=== PATIENT | female | born 1975 | race Two or more races ===

== ENCOUNTER 2024-07-31 09:00 | Outpatient (RCR) | payer MEDICAID, SELFPAY ==
--- NOTE | 2024-07-22 09:10 | PT.OIERPT ---
PT OP Initial Eval Patient Information Outpatient Physical Therapy Treatment Date: 07/22/24 Visit Reasons: lumbar spine Medical Diagnosis: M41.86 Treatment Dx #1: LBP Start of Care: 07/22/24 Date of Onset: 1 yr ago Smoking Status Smoking Status: Never smoker Initial Assessment Subjective: Pt is 49 yr old kinyarwanda speaking female with ground level fall at home last year with LBP. Pt reports increased LBP with prolonged walking, sitting and bending. She feels limited with HH chores and she takes rest breaks. Pt denies pain radiation into the LE's. PMH: hypothyroidism Imaging: with provider Pt goal: to get rid of the LBP Objective: ?Trunk ArOM: ? B SB 50% of normal ? Extension: 30% with pain around L4-5, L5-S1 ? Flexion: to toes with LBP ? B rotation: 60% ? TTP: moderate paraspinals L5-S1 ? Neuro: B SLR: negative Assessment: ? Pt presents with trunk flexion sensitivity and overlying myofascial pain ? and TTP around L5-S1 consistent with lower lumbar disc bulge(s) and facet pain. Pt requires skilled therapy in order to decrease ? pain and improve sitting/standing tolerance and has fair rehab potential. Eval ?followed by HEP printout. Short Term and Retirement Goals 1. Ind with HEP ? 2. Improved sitting/standing tolerance to 30 minutes with <=4/10 LBP ? 3. Decreased lower paraspinal TTP from mod to min 4. Improved HH chore tolerance to at least 30 minutes with <=3/10 LBP and no ?increase in LE ssx ? Treatment Plan 1. Manual therapy ? 2. Therex ? 3. Modalities as indicated, moist heat, ice, estim, mechanical traction Frequency and Duration: 2x a week for 6 Rx sessions plus the evaluation Certification Dates: 07/22/24 to 10/20/24 Procedure Charges OP PT Eval Mod Complex 30 minutes: Yes
--- NOTE | 2024-07-31 11:45 | PT.ODAYNRPT ---
PT Outpatient Daily Note OP Daily Note Outpatient Physical Therapy Treatment Date: 07/31/24 Visit Reasons: lumbar spine Subjective: Same as time of evaluation Objective: See F/S for therex Assessment: Good demo of prone extension with low tissue irritability of LB Plan: Continue per POC Length of Time (minutes) of Treatment: 30 Minutes Procedure Charges Therapeutic Exercise 30 minutes: Yes
== END 2024-08-13 23:59 | disposition home or self-care (01) ==
LOC: CPTX 09:00
PROVIDERS: PCP Physician Assistant; Referring Provider Physician Assistant; Visit Provider Physician Assistant
DX: M54.50 Low back pain, unspecified (principal); M41.86 Other forms of scoliosis, lumbar region
CPT/HCPCS: 97110; 97162

== ENCOUNTER 2024-09-10 09:30 | Outpatient (RCR) | payer MEDICAID, SELFPAY ==
--- NOTE | 2024-09-02 13:49 | PT.ODAYNRPT ---
PT Outpatient Daily Note OP Daily Note Outpatient Physical Therapy Treatment Date: 09/02/24 Visit Reasons: Lumbar spine Subjective: Continued LBP Objective: See F/S for therex Assessment: Good demo of prone extension with low/moderate tissue irritability of LB Plan: Continue per POC Length of Time (minutes) of Treatment: 30 Minutes Procedure Charges Therapeutic Exercise 30 minutes: Yes
--- NOTE | 2024-09-10 10:07 | PT.ODAYNRPT ---
PT Outpatient Daily Note OP Daily Note Outpatient Physical Therapy Treatment Date: 09/10/24 Visit Reasons: Lumbar spine Subjective: Pt reports low back has been more sore lately but has been performing her HEP. Objective: Please see flow sheet for ther ex list. Assessment: Pt c/o LBP soreness post repeated lumbar extension exercise. Plan: Continue with POC. Length of Time (minutes) of Treatment: 30 Minutes Procedure Charges Therapeutic Exercise 30 minutes: Yes
== END 2024-09-13 23:59 | disposition home or self-care (01) ==
LOC: CPTX 09:30
PROVIDERS: PCP Physician Assistant; Referring Provider Physician Assistant; Visit Provider Physician Assistant
DX: M54.50 Low back pain, unspecified (principal); M41.86 Other forms of scoliosis, lumbar region
CPT/HCPCS: 97110

== ENCOUNTER 2024-09-19 06:01 | Emergency (ER) | payer MEDICAID, SELFPAY ==
[2024-09-19] VITALS (23 sets, daily range): BP systolic 132–173; BP diastolic 79–114; PULSE 75–103; RESP 17–19; TEMP 36.6–37.9; O2SAT 91–98; BMI 50.5
--- NOTE | 2024-09-19 07:02 | XR_ITS ---
Examination: PA lateral chest 2 views TECHNIQUE: Upright PA lateral chest 2 views INDICATION: Chest pain beginning 10 days ago. FINDINGS: No significant cardiac enlargement No pneumonia or pulmonary edema Intact osseous structures IMPRESSION: No active disease
--- NOTE | 2024-09-19 07:02 | EKG_ITS ---
[facility] Test Date: 2024-09-19 Pat Name: RACHEAL SHANNONDepartment: Room: - Gender: Female Lead Android Developer: : 1975 Requested By: Kyle Aden Order Number: [id number] Reading MD: Kyle Aden Measurements Intervals [place] Rate: 97 P: 51 OR: 177 QRS: 58 QRSD: 85 T: 12 QT: 318 QTc: 405 Interpretive Statements SINUS RHYTHM POSSIBLE LEFT ATRIAL ENLARGEMENT [-0.1mV P-WAVE IN V1/V2] POSSIBLE ANTERIOR MYOCARDIAL INFARCTION , PROBABLY OLD [30 ms Q WAVE IN V3/V4, OR R < 0.2 mV IN V4] Compared to ECG 01/10/2018 11:37:51 Myocardial infarct finding now present Sinus bradycardia no longer present /store/S0/[id number]/ecg/[id number].pdf
--- NOTE | 2024-09-19 07:02 | XR_ITS ---
Examination: Lumbar spine 3 views Technique one AP lateral coned lateral lower lumbar spine 3 views Date and time: September 19, 2024 0719 hours INDICATIONS: Patient fell 10 days ago with injury to lower back, lower back pain. FINDINGS: Prominent osteopenia Lumbar dextroscoliosis 19 degrees Depression of the superior endplate L2 and reduction in height L1 which appear old but clinical correlation advised Advanced degenerative disc disease at the lower 2 lumbar levels IMPRESSION: Consider CT scan lumbar spine without contrast follow-up to exclude acute fractures L1-L2 vertebral bodies
--- NOTE | 2024-09-19 07:03 | PD.EDRME ---
Rapid Medical Screening Exam RME Arrival date/time: 09/19/24 06:01 49-year-old female with a history of hyperlipidemia presents to the emergency room with a chief complaint of bilateral lower extremity swelling, facial swelling, unable to fully empty her bladder, and lumbar back pain x 1 week I have greeted and performed a focused initial assessment of this patient. A comprehensive ED assessment and evaluation of the patient, analysis of all test results, and completion of the medical decision making process will be conducted by additional ED providers. Chief Complaint: Back Pain/Injury Vital signs: Vital Signs Temperature 99.1 F 09/19/24 06:50 Pulse Rate 103 H 09/19/24 06:50 Respiratory Rate 17 09/19/24 06:50 Blood Pressure 173/114 H 09/19/24 06:50 Pulse Oximetry (%) 98 09/19/24 06:50 Oxygen Delivery Method Room Air 09/19/24 06:50 Vital signs reviewed by provider: Yes
[2024-09-19 07:51] LABS: Basophils # (Auto) 0.1 Thou/mm3 (0.0-0.2); Basophils % (Auto) 1 % (0-2.5); Eosinophils # (Auto) 0.1 Thou/mm3 (0.0-0.5); Eosinophils % (Auto) 1 % (0-10); Hematocrit 40.6 % (36.0-46.0); Hemoglobin 13.9 g/dL (12.0-16.0); Immature Granulocytes % (Auto) 4 % (0-0); Immature Granulocytes Auto 0.43 Thou/mm3 (0.00-0.00); Lymphocytes # (Auto) 2.7 Thou/mm3 (1.0-4.8); Lymphocytes % (Auto) 22 % (10-50); Mean Corpuscular HGB Conc 34.2 g/dl (31.0-37.0); Mean Corpuscular Hemoglobin 28.4 pg (25.0-35.0); Mean Corpuscular Volume 83 fL (80-100); Monocytes % (Auto) 8 % (0-12); Neutrophils # (Auto) 7.9 Thou/mm3 (1.8-7.7); Neutrophils % (Auto) 65 % (37-80); Nucleated Red Blood Cell % 0 /100 WBC (0); Platelet Count 200 Thou/mm3 (140-440); RDW Standard Deviation 46.1 fL (36.4-46.3); Red Blood Count 4.89 Miln/mm3 (4.00-5.20); White Blood Count 12.1 Thou/mm3 (3.6-11.0)
[2024-09-19 08:07] LABS: B-Type Natriuretic Peptide < 20 pg/mL (0-100)
[2024-09-19 08:09] LABS: Alanine Aminotransferase 85 U/L (10-49); Albumin, Serum 4.2 gm/dL (3.5-5.0); Albumin/Globulin Ratio 1.8 (1.2-2.2); Alkaline Phosphatase 117 U/L (46-116); Anion Gap 10 (7-16); Aspartate Amino Transferase 32 U/L (0-34); BUN/Creatinine Ratio 25 Ratio (12-20); Bilirubin,Total 0.9 mg/dL (0.3-1.2); Blood Urea Nitrogen 15 mg/dL (9-23); Calcium 9.4 mg/dL (8.3-10.6); Calcium (Corrected) 9.4 mg/dL (8.5-10.1); Carbon Dioxide 28.7 mMol/L (20.0-31.0); Chloride 101 mMol/L (98-107); Creatinine (Component) 0.6 mg/dL (0.6-1.3); Estimated Creatinine Clearance 104.7 mL/min (>60); Globulin 2.3 gm/dL (2.3-3.5); Glucose 97 mg/dL (74-106); Osmolality,Calculated 280 (275-295); Potassium 3.6 mMol/L (3.4-5.1); Sodium 140 mMol/L (136-145); Total Protein 6.5 gm/dL (5.7-8.2); Troponin I < 0.020 ng/mL (0.0-0.045); eGFR > 60 See Note
[2024-09-19 08:21] LABS: Collection Type, Urine Clean Catch
[2024-09-19 08:33] LABS: Bacteria,Urine Rare; Bilirubin,Urine Negative (Negative); Blood,Urine Trace (Negative); Clarity,Urine Clear (Clear/Hazy); Color,Urine Lt-Yellow (Lt Yel-Yel); Glucose, Urine Negative (Negative); Ketones,Urine Negative (Negative); Leukocyte Esterase,Urine Negative (Negative); Nitrite,Urine Negative (Negative); Protein,Urine Negative (Neg - Trace); RBC,Urine 1 /hpf (0-3); Specific Gravity,Urine 1.012 (1.001-1.035); Squamous Epithelial Cell,Urine < 1 /hpf (0-5); Urobilinogen,Urine Negative mg/dL (0.0-1.0); WBC,Urine 1 /hpf (0-5)
[2024-09-19] MEDS: ACETAMINOPHEN 325 MG TABLET 650 MG PO (09:15)
--- NOTE | 2024-09-19 13:07 | PD.EDADULT ---
ED General RME/HPI General Chief complaint: Back Pain/Injury Stated complaint: R LOWER BACK PAIN Arrival date/time: 09/19/24 06:01 RME / HPI RME / HPI narrative: 09/19/24 06:01 49-year-old female with a history of hyperlipidemia presents to the emergency room with a chief complaint of bilateral lower extremity swelling, facial swelling, unable to fully empty her bladder, and lumbar back pain x 1 week I have greeted and performed a focused initial assessment of this patient. A comprehensive ED assessment and evaluation of the patient, analysis of all test results, and completion of the medical decision making process will be conducted by additional ED providers. DR. WATKINS MAIN ED EVALUATION: Related Data Previous Rx's ?Medication ?Instructions ?Recorded ibuprofen 600 mg tablet 600 mg PO Q6HR PRN PAIN #20 tabs 05/07/14 Allergies Allergy/AdvReac Type Severity Reaction Status Date / Time No Known Allergies Allergy Unknown Uncoded 09/19/24 06:15 Course Orders Category Date Time Status EKG (ED ONLY) *Do not use* NOW Care 09/19/24 07:02 Completed EKG (ED Only) Stat Exams 09/19/24 07:02 Draft XR chest 2V Stat Exams 09/19/24 07:02 Completed XR lumbar spine 2-3V Stat Exams 09/19/24 07:02 Completed B-Type Natriuretic Peptide Stat Lab 09/19/24 07:37 Completed CBC Stat Lab 09/19/24 07:37 Completed Comprehensive Metabolic Panel Stat Lab 09/19/24 07:37 Completed Magnesium Stat Lab 09/19/24 07:37 Completed Troponin I Stat Lab 09/19/24 07:37 Completed Urinalysis Stat Lab 09/19/24 08:14 Completed Acetaminophen Tab [Tylenol Tab] Med 09/19/24 09:05 Discontinued 650 mg PO X1 ONE Vital Signs Vital signs: Vital Signs Temperature 99.1 F 09/19/24 06:50 Pulse Rate 103 H 09/19/24 06:50 Respiratory Rate 17 09/19/24 06:50 Blood Pressure 173/114 H 09/19/24 06:50 Pulse Oximetry (%) 98 09/19/24 06:50 Oxygen Delivery Method Room Air 09/19/24 06:50 Discharge Plan Prescriptions/Referrals Prescriptions/Med Rec: No Action ibuprofen 600 MG tablet 600 mg PO Q6HR PRN (Reason: PAIN) Qty: 20 0RF Referrals: Lolita Kelly PA-C [Primary Care Provider] - In 1 week Patient/Caregiver Discharge Instructions Print Language: Albanian MDM Medication Administration(s) Medication Administration History Discontinued Medications Acetaminophen (Acetaminophen 325 Mg Tablet) 650 mg PO X1 ONE Stop: 09/19/24 09:06 Last Admin: 09/19/24 09:15 Dose: 650 mg Documented By: GABRIELA
--- NOTE | 2024-09-19 13:43 | XR_ITS ---
Examination: CT lumbar spine, without contrast. 2-D sagittal reconstructions. 2-D coronal reconstructions. 3-D reconstructions. Date and time of exam:September 19, 2024 1547 hours INDICATIONS: Patient fell 10 days ago with injury to lower back, lower back pain CTDI: vol (mGy):30.5 DLP: (mGycm):863 Technique: Multiple 1.25 mm axial sections of the lumbar spine without intravenous contrast have been obtained. 2-D sagittal and coronal reconstructions have been obtained. 3-D reconstructions have been obtained. Low dose protocols were performed. One or more of the following dose reduction techniques were used; automated exposure control, adjustment of the mA and/or KV according to patient size, use of iterative reconstruction technique. Findings: Severe osteopenia Acute fractures inferior endplate L1 and superior endplate L2 Minimal reduction in height of these vertebral bodies Grade 1 anterolisthesis L5 on S1 L5-S1 L4-L5 4 mm central lumbar disc bulges IMPRESSION: Mild acute fractures L1, L2 with satisfactory alignment of these vertebral bodies
--- NOTE | 2024-09-19 14:01 | XR_ITS ---
Examination: CT pelvis without intravenous contrast. 2-D sagittal and coronal reconstructions. Date and time of exam:September 19, 2024, 1547 hours INDICATIONS: Patient fell 10 days ago with into the pelvis, pelvic pain CTDI: vol (mGy) :10.1 DLP: (mGycm) : 297 Technique: Multiple 3 mm axial sections of the pelvis have been obtained with the 64 slice high resolution scanner. 2-D sagittal and coronal reconstructions. Low dose protocols were performed. One or more of the following dose reduction techniques were used; automated exposure control, adjustment of the mA and/or KV according to patient size, use of iterative reconstruction technique. Findings: Moderate osteopenia Iliac bones acetabular regions anterior rami intact Hips appear intact Sacral segments intact No pelvic hematoma Urinary bladder intact IMPRESSION: No hip or pelvic fracture
--- NOTE | 2024-09-19 14:01 | XR_ITS ---
EXAMINATION: Ankle, left 3 views . Technique: Ankle AP, oblique, lateral 3 views Date and time of exam: September 19, 2024 1424 hours INDICATIONS: Twisting injury to the ankle 10 days ago, ankle pain. FINDINGS: Bimalleolar soft tissue swelling No ankle fracture or dislocation IMPRESSION: No ankle fracture or dislocation 8mm plantar bony calcaneal spur
--- NOTE | 2024-09-19 14:04 | PD.EDBACK ---
ED Back Injury Pain RME/HPI General Chief Complaint: Back Pain/Injury Stated Complaint: R LOWER BACK PAIN Arrival date/time: 09/19/24 06:01 RME / HPI RME / HPI Narrative: 09/19/24 The patient is a 49-year-old female with significant past medical history of prediabetes, peripheral vascular disease, and morbid obesity presented to ED with chief complaint of unable to walk for 10 days. The patient reported that she had a fall 10 days ago, and twisted her left ankle, right knee and there was a severe impact on her lower to middle back. She also reported difficulty urination, and very low sensation to urinate and unable to fully empty her bladder. She had 1 episode of subjective fever few days ago. She denied any headache, nausea or vomiting, chest pain, SOB, abdominal pain, any changes in bowel habit, or chills. Related Data Previous Rx's ?Medication ?Instructions ?Recorded ibuprofen 600 mg tablet 600 mg PO Q6HR PRN PAIN #20 tabs 05/07/14 calcium carbonate 500 mg PO BID #60 tabs 09/19/24 cholecalciferol (vitamin D3) 125 125 mcg PO QDAY #30 tabs 09/19/24 mcg (5,000 unit) tablet ibuprofen 400 mg tablet 400 mg PO Q8H PRN pain #20 tabs 09/19/24 Allergies Allergy/AdvReac Type Severity Reaction Status Date / Time No Known Allergies Allergy Unknown Uncoded 09/19/24 06:15 Review of Systems Review of Systems Systems Reviewed: All systems reviewed, normal except as documented (Above) Past Medical History Past Medical History ENDOCRINE: Positive Hypothyroidism Surgical History OTHER SURGICAL HX: denies pshx Social History SMOKING STATUS: Never smoker SUBSTANCE USE: does not use ALCOHOL: Never ED Exam Narrative Physical exam: General: Middle-aged, cooperative, morbidly obese woman,, back no acute distress, Alert and Oriented x 3 HEENT: Moist mucous membranes, oropharynx clear Neck: Supple, No masses, No JVD CVS: S1S2 Regular rate and rhythm, No murmurs, rubs or gallops Lungs: Clear to auscultation with no accessory use, no wheeze no rhonchi Abd: Soft, NT/ND, +BS, no organomegaly, back: Tenderness over lower back and left pelvic region. Ext: Prominent dilated veins, warm and well perfused, no pitting edema, tenderness over right knee and left ankle Skin: No rash Psych: Appropriate mood and affect Course Quality Measures none Orders Category Date Time Status EKG (ED ONLY) *Do not use* NOW Care 09/19/24 07:[address] lumbar spine wo con Stat Exams 09/19/24 13:[address] pelvis wo con Stat Exams 09/19/24 14:01 Completed EKG (ED Only) Stat Exams 09/19/24 07:02 Draft XR ankle comp LT min 3V Stat Exams 09/19/24 14:01 Completed XR chest 2V Stat Exams 09/19/24 07:02 Completed XR lumbar spine 2-3V Stat Exams 09/19/24 07:02 Completed B-Type Natriuretic Peptide Stat Lab 09/19/24 07:37 Completed CBC Stat Lab 09/19/24 07:37 Completed Comprehensive Metabolic Panel Stat Lab 09/19/24 07:37 Completed HCG,Qualitative Serum Stat Lab 09/19/24 07:37 Completed Magnesium Stat Lab 09/19/24 07:37 Completed Troponin I Stat Lab 09/19/24 07:37 Completed Urinalysis Stat Lab 09/19/24 08:14 Completed Acetaminophen Tab [Tylenol Tab] Med 09/19/24 09:05 Discontinued 650 mg PO X1 ONE HYDROcodone*/APAP 5/325 [[place] 5/325] Med 09/19/24 19:10 Discontinued 1 tab PO X1 ONE Ketorolac Inj [Toradol Inj] Med 09/19/24 15:44 Discontinued 30 mg IM X1 ONE Ketorolac Inj [Toradol Inj] Med 09/19/24 15:06 Discontinued 30 mg IVP X1 ONE Vital Signs Vital signs: Vital Signs Temperature 99.1 F 09/19/24 06:50 Pulse Rate 103 H 09/19/24 06:50 Respiratory Rate 17 09/19/24 06:50 Blood Pressure 173/114 H 09/19/24 06:50 Pulse Oximetry (%) 98 09/19/24 06:50 Oxygen Delivery Method Room Air 09/19/24 06:50 Back Pain / Injury MDM Narrative MDM Narrative:: The patient is a 49-year-old female with significant past medical history of prediabetes, peripheral vascular disease, and morbid obesity presented to ED with chief complaint of unable to walk for 10 days. The patient reported that she had a fall 10 days ago, and twisted her left ankle, right knee and there was a severe impact on her lower to middle back. She also reported difficulty urination, and very low sensation to urinate and unable to fully empty her bladder. She had 1 episode of subjective fever few days ago. She denied any headache, nausea or vomiting, chest pain, SOB, abdominal pain, any changes in bowel habit, or chills. In the ED her vitals were blood pressure 173/114, pulse 103, with temperature 99.1. Her blood pressure trended down to 151/81 after pain medicines, white count was 12.1, UA was negative with rare urine bacteria only. Chest x-ray revealed No active disease lumbar spine x-ray revealed depression of the superior endplate L2 and reduction in the height L1, EKG revealed sinus rhythm, possible left atrial enlargement. Number spine CT revealed severe osteopenia, acute fractures inferior endplate L1 and superior endplate L2, minimal reduction in height of the vertebral bodies, grade 1 anterolisthesis L5 on S1, L5-S1 L4-L5 4 mm central lumbar disc bulge. Ankle x-ray was negative for fracture or dislocation. 8 mm plantar bony calcaneal spur was present. Pelvis CT was negative for any acute fracture. The patient's physical exam revealed no neurological deficit, and patient was able to walk and use the restroom by herself. She did not report any urinary incontinence. The patient was planned to discharge home. The patient's management plan was discussed with my attending physician MD Douglas Waite MD, PGY2 Patient data External records reviewed:: [facility] previous records Clinical information provided by:: patient Social determinants that could affect healthcare access:: none Patient has the following chronic illnesses:: See above How is presenting disease/condition affected by chronic disease/condition?: exacerbated by Evaluation data The following diagnostics were reviewed and interpreted by me:: lab results, radiology exam(s) and EKG tracing(s) Lab and/or radiology exams considered but not ordered:: None Interpretation Summary: See above Medications / Prescriptions Medications or Prescriptions considered but not ordered:: None Medication administrations:: Medication Administration History Discontinued Medications Acetaminophen (Acetaminophen 325 Mg Tablet) 650 mg PO X1 ONE Stop: 09/19/24 09:06 Last Admin: 09/19/24 09:15 Dose: 650 mg Documented By: SM Hydrocodone Bitart/Acetaminophen (Hydrocodone/Apap 5/325 Tablet) 1 tab PO X1 ONE Stop: 09/19/24 19:11 Last Admin: 09/19/24 19:39 Dose: 1 tab Documented By: AM Ketorolac Tromethamine (Ketorolac Inj 30 Mg/Ml Vial) 30 mg IVP X1 ONE Stop: 09/19/24 15:07 Last Admin: 09/19/24 17:02 Dose: Not Given Documented By: CG Non-Admin Reason: Cancelled by Provider Ketorolac Tromethamine (Ketorolac Inj 60 Mg/2 Ml Vial) 30 mg IM X1 ONE Stop: 09/19/24 15:45 Last Admin: 09/19/24 16:21 Dose: 30 mg Documented By: CG Comments: left Medial Gluteal See above Consultations Consultation(s) initiated? (list below): No Diagnosis Differential diagnosis back pain/injury: lumbar radiculopathy, sciatica, strain of lumbar region and other (Acute Non displaced lumbar vertebral fracture L1-L2) Most likely diagnosis given after review of the tests above:: Acute Non displaced lumbar vertebral fracture L1-L2 Admission Indicated Admission indicated?: not indicated Admission Request Was there a request for admission?: No Disposition Plan Disposition Plan: Discharge Discharge Attestation Discharge Attestation: The patient and all family members were given an opportunity to ask questions and understood the discharge instructions. Discharge instructions specifically effects, indications for sooner follow up or return to the emergency department, and the expected course of current diagnosis. Patient condition: Stable Discharge Plan Plan Patient Disposition: HOME (Self Care) Prescriptions/Referrals Prescriptions/Med Rec: New ibuprofen 400 mg tablet 400 mg PO Q8H MDD 3 PRN (Reason: pain) Qty: 20 0RF calcium carbonate 500 mg calcium (1,250 mg) tablet 500 mg PO BID Qty: 60 2RF cholecalciferol (vitamin D3) 125 mcg (5,000 unit) tablet 125 mcg PO QDAY Qty: 30 2RF No Action ibuprofen 600 MG tablet 600 mg PO Q6HR PRN (Reason: PAIN) Qty: 20 0RF Referrals: Lolita Kelly PA-C [Primary Care Provider] - In 1 week Problem List Clinical Impression: Compression fracture of L2, Fracture of L1 vertebra, Osteopenia, Bone spur of inferior portion of left calcaneus Patient/Caregiver Discharge Instructions Education Materials: Back Fracture (Compression Fracture) Additional Instructions: El Dr. Carter le joshua de john con las siguientes recomendaciones: Por favor, consulte con ellington m?dico de cabecera dentro de la semana posterior al john. Se le jay iniciado el tratamiento con: - Ibuprofeno 400 mg cada 8 horas seg?n sea necesario para el dolor - Calcio 500 mg dos veces al d?a neel 3 meses - Vitamina D 5000 UI al d?a neel 3 meses - Se recomienda regresar a urgencias si los s?ntomas persisten o empeoran. You were discharged by Dr. Carter with the following recommendations: Please follow-up with your PCP within 1 week of discharge You have been started on: - Ibuprofen 400 Mg every 8 hourly as needed for pain - Calcium 500 Mg twice daily for 3 months - Vitamin D 5000 IU daily for 3 months -Recommended to return back to emergency department if your symptoms persists or worsens Print Language: Niuean Stand Alone Forms: Annette Award Info., Patient Portal Info Letter Attestation Attestation I, Adan Mcrae MD, have reviewed the history, exam, and assessment of the patient. I have evaluated the patient independently and agree with the plan of care documented by [ ]. All diagnostic studies were reviewed and discussed. I confirm the diagnosis as documented by the Resident. I was present during the Medical Decision Making for this patient. The patient's plan of care was created between myself and the Resident and consistent with our discussion of the patient's case. No patient was able to get up and walk and actually her injury was 10 days before she came in for evaluation. She has some acute abnormalities of her vertebral bodies mild compression deformities appear to be stable there is no neurological deficits.
[2024-09-19 15:27] LABS: HCG,Qualitative Serum Negative
[2024-09-19] MEDS: KETOROLAC INJ 60 MG/2 ML VIAL 30 MG IM (16:21)
[2024-09-19] MEDS: HYDROcodone/APAP 5/325 TABLET 1 TAB PO (19:39)
== END 2024-09-19 19:54 | disposition home or self-care (01) ==
PROVIDERS: Nurse Practitioner Family; Emergency Provider Emergency Medicine; PCP Physician Assistant
DX: S32.019A Unspecified fracture of first lumbar vertebra, initial encounter for closed fracture (principal); S32.029A Unspecified fracture of second lumbar vertebra, initial encounter for closed fracture; M85.89 Other specified disorders of bone density and structure, multiple sites; M77.32 Calcaneal spur, left foot; R07.9 Chest pain, unspecified; R94.31 Abnormal electrocardiogram [ECG] [EKG]; M25.572 Pain in left ankle and joints of left foot; W19.XXXA Unspecified fall, initial encounter
CPT/HCPCS: 36415; 71046; 72100; 72131; 72192; 73610; 80053; 81001; 83735; 83880; 84484; 84703; 85025; 93005; 96372; 99284; J1885; A9270

== ENCOUNTER → 2024-12-19 | Outpatient (CLI) | payer MEDICAID, SELFPAY ==
--- NOTE | 2024-12-19 13:30 | XR_ITS ---
Examination: MRI thoracic spine without contrast. Date and time of exam: December 19, 2024, 1433 hours INDICATIONS: Patient slipped and fell September 2024 with injury to the mid back, compression fracture T7 Technique: Multiple sagittal and axial images of the thoracic spine have been obtained. T1 weighted localizer, sagittal T2 weighted images, TR 30-50, TE 148, T1 weighted sagittal images, TR 650, TE 14, T2-weighted transverse images, TR 6770, TE 142 Findings: Subacute compression fracture T7 vertebral body, retropulsion of the posterior inferior margin of this vertebral body 3 mm, mildly impinging upon the anterior thoracic cord Remaining vertebral bodies intact No localized enlargement thoracic cord Impression: Severe compression fracture T7 vertebral body, subacute, reduction in height 80% plus Mild retropulsion of this vertebral body
--- NOTE | 2024-12-19 14:00 | XR_ITS ---
Examination: MRI lumbar spine without contrast Date and time of exam: December 19, 2024 1459 hours INDICATIONS: Patient fell September 2024 with into the lower back, lower back pain Technique: Multiple MRI axial and sagittal sections lumbar spine. Sagittal T2-weighted images, TR 3500, TE 118 T1 weighted transverse sections, TR 688 T8.5, T2-weighted sagittal sections T1 weighted sagittal sections TR 621, TE 30 T2 axial sections, TR 4, 190, TE 84. Findings: Subacute compression fractures L4, reduction in height 50%, L1, reduction in height 15% Adequate alignment of these lumbar vertebral bodies Diffuse lumbar disc dislocation L5-S1 4 mm right paracentral disc bulge displacing the right S1 nerve root No additional focal lumbar disc bulges IMPRESSION: Subacute compression fractures L4, L1 L5-S1 4 mm right paracentral disc bulge displacing the right S1 nerve root
== END | disposition home or self-care (01) ==
LOC: SMRI 13:28
PROVIDERS: PCP Physician Assistant; Referring Provider Nurse Practitioner Primary Care; Visit Provider Nurse Practitioner Primary Care
DX: M41.86 Other forms of scoliosis, lumbar region (principal); M51.370 Other intervertebral disc degeneration, lumbosacral region with discogenic back pain only; S22.060D Wedge compression fracture of T7-T8 vertebra, subsequent encounter for fracture with routine healing; S32.049D Unspecified fracture of fourth lumbar vertebra, subsequent encounter for fracture with routine healing; S32.019D Unspecified fracture of first lumbar vertebra, subsequent encounter for fracture with routine healing; W01.0XXD Fall on same level from slipping, tripping and stumbling without subsequent striking against object, subsequent encounter
CPT/HCPCS: 72146; 72148